=== PATIENT | male | born 1985 ===

== ENCOUNTER 2019-03-23 14:07 | Emergency (ER) | payer OTHER ==
[~2019-03-23] VITALS: Ht 180.3 cm; Wt 106.6 kg
[2019-03-23] MEDS ORDERED: SYMBICORT 16010.2 GM (14:43)
[2019-03-23] MEDS ORDERED: PROAIR HFA8.5 GM (14:43)
[2019-03-23] MEDS ORDERED: DYMISTA NASAL S23 GM (14:44)
[2019-03-23] MEDS ORDERED: TESSALON PERLE100 M1 PO (20:21)
[2019-03-23] MEDS ORDERED: MUCINEX DM ER1 EAC1 PO (20:21)
[2019-03-23] MEDS ORDERED: ZITHROMAX500 MG PO (20:21)
== END 2019-03-23 20:42 | disposition home or self-care (01) ==
LOC: ER 14:07
DX: B96.0 Mycoplasma pneumoniae [M. pneumoniae] as the cause of diseases classified elsewhere (principal); J06.9 Acute upper respiratory infection, unspecified